=== PATIENT | female | born 1955 | race Caucasian/White ===

== ENCOUNTER → 2024-05-09 16:07 | Outpatient (REF) | payer MEDICARE, OTHER, SELFPAY | LOC: RCS 16:07 | PROVIDERS: ATTENDING PHYSICIAN Family Medicine | DX: R01.1 Cardiac murmur, unspecified (principal) | CPT/HCPCS: 93306 ==

== ENCOUNTER → 2024-07-12 08:42 | Outpatient (REF) | payer MEDICARE, OTHER, SELFPAY | LOC: WDC 08:42 | PROVIDERS: ATTENDING PHYSICIAN Obstetrics & Gynecology; FAMILY PHYSICIAN Family Medicine | DX: Z12.31 Encounter for screening mammogram for malignant neoplasm of breast (principal) | CPT/HCPCS: 77063; 77067 ==